=== PATIENT | female | born 1985 | race Caucasian/White ===

== ENCOUNTER 2021-10-21 01:25 | Day surgery (SDC) | payer BC, SELFPAY ==
[2021-10-07 13:34] VITALS: BMI 28.3
--- NOTE | 2021-10-20 17:34 | PM.HPGS ---
History of Present Illness History of Present Illness Consent: Risks, benefits, and alternatives have been discussed and questions answered. Patient agrees to proceed with procedure. Chief complaint: occult GI bleed Narrative: Cat Xavier is a 36 year old female who was referred for investigation of Blood in the stools. She has cycles of her bowels becoming constipated and then having loose stools for about 4 days. When her stools are softer she often feels a's though she is not empty. she had once been given a trial of Linzess but that made her miserable. She tends to not eat breakfast. Review of Systems Review of Systems: All systems reviewed & are unremarkable except as noted in HPI and below PMFSH Past Medical History Medical History Anxiety Back pain Depression HSV-1 (herpes simplex virus 1) infection Maternal blood transfusion Neck pain Surgical History Surgical History H/O knee surgery rt knee and left knee H/O shoulder surgery H/O: hysterectomy History of cholecystectomy Previous back surgery Family History Family History Other Acute myocardial infarction Breast cancer Cerebrovascular accident Crohn's disease Diabetes mellitus Hypertension Malignant lymphoma Social History Social History Smoking status: Never smoker Alcohol intake: current Substance use: current Substance use type: does not use Living arrangements: with family Gender identity (if verbalized by the patient): Female Sexual Orientation (if Verbalized by the Patient): Straight or Heterosexual Spiritual care concerns: No Meds Home Medications and Allergies Home Medications Medication Instructions Recorded Confirmed Type spironolactone 100 mg tablet 150 mg PO DAILY 10/07/21 10/07/21 History Allergies Allergy/AdvReac Type Severity Reaction Status Date / Time No Known Allergies Allergy Verified 10/21/21 10:15 Exam Resp: Auscultation: clear to auscultation bilaterally Cardio: Rate: regular rate Rhythm: regular rhythm GI: GI Palp: Yes Soft to palpation and No Tenderness to palpation present (GI) Assessment and Plan Assessment and plan (1) Melena: Code(s): K92.1 - Melena Status: Acute Assessment and Plan: Colonoscopy with possible biopsy or polypectomy or cautery or injection of substances.
[2021-10-21 10:17] VITALS: BP 116/82; PULSE 81; RESP 21; O2SAT 100
[2021-10-21] MEDS: LACTATED RINGERS 1,000 ML 30 ML IV CONT (10:24)
--- NOTE | 2021-10-21 10:27 | P.PNAN_ITS ---
Anes - Initial Pre Proc Eval Procedure: Operation Date: 10/21/21 11:30 Proposed Procedures p Colonoscopy - Napoleon Liao MD Date/Time: 10/21/21 10:27 Surgeon: Napoleon Liao MD Pre Op Diagnosis: occult GI bleed Patient Data Age: 36 Gender: F Height: 1.7 m Weight: 81.7 kg Last Vital Signs Pulse 81 10/21/21 10:17 Resp 21 H 10/21/21 10:17 BP 116/82 10/21/21 10:17 Pulse Ox 100 10/21/21 10:17 O2 Del Method Room Air 10/21/21 10:17 Allergies Allergy/AdvReac Type Severity Reaction Status Date / Time No Known Allergies Allergy Verified 10/21/21 10:15 Home Medications Medication Instructions Recorded Confirmed Type spironolactone 100 mg tablet 150 mg PO DAILY 10/07/21 10/21/21 History Patient hx anesthesia problems: none Family hx anesthesia problems: none Results Review: All pre-operative results and documents have been reviewed as part of the pre- operative evaluation. [facility] Past Medical History Medical History Anxiety Back pain Depression HSV-1 (herpes simplex virus 1) infection Maternal blood transfusion Neck pain Surgical History Surgical History H/O knee surgery rt knee and left knee H/O shoulder surgery H/O: hysterectomy History of cholecystectomy Previous back surgery Family History Family History Other Acute myocardial infarction Breast cancer Cerebrovascular accident Crohn's disease Diabetes mellitus Hypertension Malignant lymphoma Social History Social History Smoking status: Never smoker Alcohol intake: current Substance use: current Substance use type: does not use Living arrangements: with family Gender identity (if verbalized by the patient): Female Sexual Orientation (if Verbalized by the Patient): Straight or Heterosexual Spiritual care concerns: No Anes - Eval Final PreProcedure Day of Procedure 10/21/21 10:27 Patient weight: normal Heart: regular rate and rhythm Lungs: clear to auscultation Airway: Mallampati scale class II Neurological: alert and oriented Last oral intake: >/= 8 hours ASA classification: II Emergent: no Anesthetic plan: proceed Anesthesia type and monitoring: general GIVS and standard monitoring Results Review: All pre-operative results and documents have been reviewed as part of the pre- operative evaluation. Informed Consent: The patient's anesthetic plan and its attendant risks and benefits were discussed with the patient/family/POA. Questions were solicited and answers provided to the satisfaction of the patient/family/POA.
[2021-10-21 10:54] VITALS: BP 106/68; PULSE 76; RESP 25; O2SAT 100
[2021-10-21 11:04] VITALS: BP 113/70; PULSE 77; RESP 25; O2SAT 100
[2021-10-21 11:14] VITALS: BP 111/76; PULSE 69; RESP 22; O2SAT 100
== END 2021-10-21 11:24 | disposition home or self-care (01) ==
PROVIDERS: PCP Physician Assistant; Visit Provider Internal Medicine Gastroenterology
PROC: 0DJD8ZZ Inspection of Lower Intestinal Tract, Via Natural or Artificial Opening Endoscopic (ICD-10-PCS; CPT 45378; principal; 2021-10-21 11:30)
DX: K92.1 Melena (principal); K64.8 Other hemorrhoids; K51.40 Inflammatory polyps of colon without complications; F41.9 Anxiety disorder, unspecified; F32.A Depression, unspecified; Z90.49 Acquired absence of other specified parts of digestive tract
CPT/HCPCS: 45385; 88305; J2704; J7120

== ENCOUNTER 2024-01-05 16:19 | Outpatient (CLI) | payer BC, SELFPAY ==
--- NOTE | ~2024-01-05 | MM_ITS ---
EXAMINATION: MM screening lindsey BI w claudia HISTORY: Screening TECHNIQUE: Craniocaudal and mediolateral oblique 3-D tomosynthesis images were obtained and synthetic 2-D images were generated. CAD analysis was submitted and interpreted. COMPARISON: No prior mammogram is available for comparison at this institution. BREAST PARENCHYMAL COMPOSITION: Dense: The breasts are extremely dense, which lowers the sensitivity of mammography. FINDINGS: There is no evidence of suspicious mass, calcification, or architectural distortion to sugg est malignancy in either breast. There has been no suspicious interval change. IMPRESSION: 1. No mammographic evidence of malignancy. 2. Recommend routine screening mammography in one year. BI-RADS Category 1: Negative Reviewed, dictated and finalized at location B. NT LOADER
== END 2024-01-05 16:20 | disposition home or self-care (01) ==
LOC: ANHIMG 16:21
PROVIDERS: PCP Physician Assistant; Visit Provider Obstetrics & Gynecology
DX: Z12.31 Encounter for screening mammogram for malignant neoplasm of breast (principal)
CPT/HCPCS: 77063; 77067

== ENCOUNTER 2024-02-18 11:38 | Outpatient (CLI) | payer BC, SELFPAY ==
--- NOTE | ~2024-02-18 | MR_ITS ---
EXAMINATION: MR lumbar spine wo con DATE: 02/18/2024 12:18 INDICATION: Lumbar radiculopathy. Low back pain. Left leg pain. TECHNIQUE: Magnetic resonance imaging (MRI) of the lumbar spine was performed without intravenous con trast. COMPARISON: Lumbar spine radiographs 06/25/2017 FINDINGS: There is a degrees levocurvature of lumbar spine. There are changes of anterior posterior f usion procedures at L5-S1 with interbody device and pedicle screws. Vertebral body heights are normal . There is mildly decreased disc height at L4-L5. The distal spinal cord signal intensity is normal. The conus medullaris is at T12-L1. The following disc levels are specifically discussed: L1-L2: The disc does not extend beyond the endplate margin. There is mild bilateral facet joint osteo arthritis. There is no neural foraminal stenosis. There is no central canal stenosis. L2-L3: The disc does not extend beyond the endplate margin. There is moderate right and mild left fac et joint osteoarthritis. There is no neural foraminal stenosis. There is no central canal stenosis. L3-L4: The disc is bulging and has an annular fissure. There is moderate bilateral facet joint osteoa rthritis. There is mild bilateral neural foraminal stenosis. There is mild central canal stenosis. L4-L5: There is a left central extrusion. There is mild bilateral facet joint osteoarthritis. There i s mild left neural foraminal stenosis. There is mild central canal stenosis. L5-S1: There is no facet joint hypertrophy. There is no neural foraminal stenosis. There is no centra l canal stenosis. There is posterior decompression. IMPRESSION: 1. Mild lumbar spondylosis. 2. Anterior and posterior fusion procedures at L5-S1. Reviewed, dictated and finalized at location A. CAPTAIN
== END 2024-02-18 11:39 | disposition home or self-care (01) ==
LOC: MICIMG 11:39
PROVIDERS: PCP Physician Assistant; Visit Provider Physician Assistant
DX: M43.06 Spondylolysis, lumbar region (principal); Z98.1 Arthrodesis status
CPT/HCPCS: 72148

== ENCOUNTER 2024-11-14 14:45 | Emergency (ER) | payer OTHER, BC, SELFPAY ==
--- NOTE | ~2024-11-14 | CT_ITS ---
EXAMINATION: CT brain wo con COMPARISON: None HISTORY: headache for over 1 week TECHNIQUE: Axial images were obtained through the brain without IV contrast. CT scan performed using dose optimization techniques including the following automated exposure control; adjustment of mA and/or kV; use of iterative reconstruction technique. Automatic exposure control was used to reduce radiation dose. Permanent radiation dose record is archived to PACS. FINDINGS: No acute infarct or parenchymal hemorrhage. No abnormal mass or mass effect. No midline shift. No extra-axial fluid collections. No hydrocephalus. . Mastoid air cells unremarkable. Sinuses and orbits unremarkable. No acute fracture. No significant facial or scalp soft tissue swelling evident. No radiopaque foreign body is seen. Impression: 1.No acute intracranial abnormality. Reviewed, dictated and finalized at location A. Impression: 1.No acute intracranial abnormality.
[2024-11-14 14:53] VITALS: BP 124/79; PULSE 67; RESP 14; TEMP 36.1; O2SAT 98
--- NOTE | 2024-11-14 14:56 | ED.HA ---
HPI - Headache General Chief Complaint: Headache Stated Complaint: headache x 1 wk Time Seen by Provider: 11/14/24 14:52 Source: patient Mode of arrival: ambulatory Limitations: no limitations History of Present Illness HPI Narrative: Rossy is a 39-year-old female patient presenting to the ER today with complaints of headache for over 1 week. Reports pain is behind the eyes/ forehead and is wrapping around her head. Does report some associated nausea without vomiting. Patient has been taking Fioricet for her symptoms and she is not having improvement of pain. Does have some ringing in the left ear. Rates pain 8/10 currently. No visual changes. She seen her PCP on Tuesday and was given a Toradol injection and states that did not help. Pain is constantly dull and comes in waves as a sharp pain. Rates pain currently an 8/10. Related Data Home Medications ?Medication ?Instructions ?Recorded ?Confirmed ?Last Taken ?Type spironolactone 100 mg tablet 150 mg PO DAILY 10/07/21 09/04/24 10/20/21 History lisdexamfetamine 40 mg capsule 40 mg PO DAILY 08/24/22 09/04/24 Unknown History (Vyvanse) Allergies Allergy/AdvReac Type Severity Reaction Status Date / Time No Known Allergies Allergy Verified 11/14/24 14:52 Review of Systems Review of Systems: Pertinent positives per HPI. Patient denies any fever, chills, rash, visual changes, dizziness, cough, runny nose, sore throat, shortness of breath, chest pain, palpitations, nausea, vomiting, diarrhea, constipation, abdominal pain, or any urinary issues. [facility] Past Medical History Medical History Screening mammogram, encounter for HSV-1 (herpes simplex virus 1) infection Depression Maternal blood transfusion Neck pain Back pain Anxiety Surgical History Surgical History H/O shoulder surgery Previous back surgery History of cholecystectomy H/O knee surgery rt knee and left knee 02/2023 left knee H/O: hysterectomy Family History Family History Other Acute myocardial infarction Breast cancer Cerebrovascular accident Crohn's disease Diabetes mellitus Hypertension Malignant lymphoma Social History Social History Smoking status: Never smoker Alcohol intake: current Substance use: current Other substance usage details: edible Do You Feel Safe in your Home?: Yes Lack of Transportation: No Lack of Food: Never True Current Housing: I Have Housing Concerned About Future Housing: No Difficulty Paying Gas/Electric Bills: No Difficulty Paying for Meds: No Currently Unemployed: No Education: Bachelor's Degree Difficulty w/ Childcare or Family Care: No Living arrangements: with family Additional living arrangements comments: Occupation/Education: occupation Gender identity (if verbalized by the patient): Female Sexual Orientation (if Verbalized by the Patient): Straight or Heterosexual Spiritual care concerns: No Comments At the time of my signature, I reviewed and agree with the nursing past medical, surgical, social, and family history. There is no relevant family history pertinent to the patient complaint. Exam Narrative: General: Well-developed, well nourished, in no apparent distress Head: Normocephalic, atraumatic Eyes: Pupils equally round and reactive to light bilaterally, EOM intact, sclera and conjunctive clear, no discharge, lids normal Ears: TMs intact and clear, ear canals clear, no drainage, grossly hearing normal. Nose: Nares patent, no discharge, no inflammation, no sinus tenderness. Mouth: Oropharynx without lesions or masses, good dentition, MMM. Tongue midline, even rise and fall of uvula Neck: Supple, trachea midline, no enlargement of anterior or posterior cervical nodes, no thyroid masses or goiter palpable. Cardio: Regular rate and rhythm, s1 and s2 normal, no murmur appreciated. Resp: Clear to auscultation bilaterally anteriorly and posteriorly, no rhonchi, rales, wheezing or rubs Musculoskeletal: No deformity, non-tender to palpation, grossly normal range of motion, muscle strength strong and equal, peripheral pulse strong, no edema, no cyanosis, normal gait and station Neuro: Alert and oriented x4 with normal speech, no focal deficits, cranial nerves I through XII intact, muscle strength 5 out of 5, sensation intact bilaterally Course Course Emergency Course: Portions of this record may have been created with voice recognition software. Vital Signs Vital signs: Vital Signs Temperature 36.1 C L 11/14/24 14:53 Pulse Rate 67 11/14/24 14:53 Respiratory Rate 14 11/14/24 14:53 Blood Pressure 124/79 11/14/24 14:53 Pulse Oximetry 98 11/14/24 14:53 Oxygen Delivery Room Air 11/14/24 14:53 Temperature 36.1 C L 11/14/24 14:53 Pulse Rate 88 11/14/24 18:34 Respiratory Rate 17 11/14/24 18:34 Blood Pressure 133/81 11/14/24 18:34 Pulse Oximetry 99 11/14/24 18:34 Oxygen Delivery Room Air 11/14/24 14:53 Vital signs reviewed MDM - Headache MDM Narrative Medical decision making narrative: At the time of visit patient is resting comfortably on the exam table. Patient appears to be nontoxic. Complaints of headache for over 1 week. Reports pain is behind the eyes/ forehead and is wrapping around her head. Does report some associated nausea without vomiting. Patient has been taking Fioricet for her symptoms and she is not having improvement of pain. Does have some ringing in the left ear. Rates pain 8/10 currently. No visual changes. She seen her PCP on Tuesday and was given a Toradol injection and states that did not help. Pain is constantly dull and comes in waves as a sharp pain. Rates pain currently an 8/10. CT head, Benadryl 25 mg IV, promethazine 12.5 mg IV, IV bolus of normal saline, and 15 mg IV Toradol ordered. After medication was given patient reports that her symptoms are not improving. Patient feels anxious, restless, and like her skin is crawling. Xanax 0.5 mg ordered. Diagnostics: CT brain without contrast is negative for any acute intracranial process. Plan: Patient's symptoms improved somewhat after Xanax. I suspect patient has headache/anxiety. Follow-up with PCP in 3-5 days if symptoms persist. Supportive measures were discussed with the patient and they voiced understanding discharge instructions and agrees to treatment plan. Return precautions reviewed Differential Diagnosis Differential diagnosis: Likely migraine, tension headache, subarachnoid hemorrhage, headache, meningitis, sinusitis, postconcussion syndrome and other (Anxiety) Imaging Data Radiologist's impression: ITS Impressions Head CT 11/14/24 17:16 Impression: 1.No acute intracranial abnormality. Discharge Plan Discharge Clinical Impression: Anxiety Headache Qualifiers: Headache type: unspecified Headache chronicity pattern: acute headache Intractability: not intractable Qualified Code(s): R51.9 - Headache, unspecified Patient Disposition: Home Condition: Stable Instructions: Antibiotic Form, Acute Headache (ED), Anxiety (ED) Additional Instructions: CT head negative for any acute intracranial process Go home and rest in a cool dark place Increase fluids and stay well hydrated May continue Fioricet as prescribed Follow-up with your primary care doctor in 2-3 days if symptoms persist-may need referral to Neurology. Patient Language: [place] Prescriptions: No Action Vyvanse 40 mg capsule 40 mg PO DAILY mirabegron [Myrbetriq] 25 mg tablet extended release 24 hr 25 mg PO DAILY Qty: 90 3RF nystatin-triamcinolone 100,000-0.1 unit/gram-% ointment 1 applic topical BID Qty: 60 2RF spironolactone 100 mg tablet 150 mg PO DAILY valacyclovir [Valtrex] 1 gram tablet 1,000 mg PO Q12H 10 Days Qty: 20 2RF Follow-up/Referrals: Amy,LIV Massey [Primary Care Provider, Unknown] Time of Disposition: 18:25 Quality NIHSS Nursing Documentation ED NIHSS nursing documentation: reviewed/agree
--- OUTSIDE RECORDS SUMMARY | 2024-11-14 15:25 | XMS_ITS | Patient Health Record ---
Author Organization [facility] Address [address] [place] [address] Care Team Providers Care Mill Order Scheduler Name Role Phone Rossana Doherty Unavailable [phone] Allergies No Known Allergies Reason For Referral No Information Medications Medication SIG (Take, Route, Fr equency, Duration) Notes Start Date End Date Status Fioricet 50-300-40 MG prn Oral Active Plan Of Treatment No Information Insurance Providers Payer Name Payer Address Payer Phone Subscriber Number Group Number Insured Name Patient Relationship to Insured Coverage Start Date Coverage End Date [employer] [address] [address] [place] [address] [id number] Cat Xavier Self - patient is the insured [place] [address] [place] [address] [id number] Cat Xavier Self - patient is the insured 2 Medical (General) History Surgical History Surgery Date(Month/Year) Knee surgery; 2018-11-16 cholecystectomy; 2018-11-16
--- OUTSIDE RECORDS SUMMARY | 2024-11-14 15:25 | XMS_ITS | Clinical Summary ---
Author Organization [facility] Address [address] [place] [address] Phone Care Team Providers Care Lacquer Shader Name Role Phone Jose Castaneda MD Primary Care Provider [phone] Allergies No known active allergies Medications PNV COMBO#14/FE/FA #1/DHA/LYNETTE (PNV #[id number]#1-DH A-DOCUSATE ORAL) Act holli valacyclovir (VALTREX) 500 mg Oral tablet Take 500 mg by mouth 2 times daily. Active Active Problems Problem Noted Date Diagnosed Date 09/0609/06/2014 07/18, girl 07/19/2011 Resolved Problems Problem Noted Date Diagnosed Date Resolved Date SROM (0010) GBS-, A+, HSV (-ble) 07/19/2011 07/19/2011 Immunizations Immunization Administration Dates Next Due (ADACEL/BOOSTRIX)(10 YR UP) TDAP VACCINE, 0.5ML, IM 07/20/2011 Influenza Seasonal Unspecified Formulation IM Family History Medical History Relation Name Comments Healthy Brother Healthy Father Healthy Maternal Grandmother Other Maternal Grandmother Chron's Disease Healthy Mother Relation Name Status Comments Brother Alive Father Alive Maternal Grandfather Maternal Grandmother Alive Mother Alive Paternal Grandfather Paternal Grandmother Social History Tobacco Use Types Packs/Day Years Used Date Smoking Tobacco: Never Smokeless Tobacco: Never Alcohol Use Standard Drinks/Week Comments No 0 (1 standard drink = 0.6 oz pur e alcohol) Comments No Sex and Gender Information Value Date Recorded Sex Assigned at Not on file Legal Sex Female 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 Gender Identity Not on file Sexual Orientation Not on file Occupation Industry Job Start Date Job End Date Not on file Not on file Not on file Not on file Last Filed Vital Signs Vital Sign Reading Time Taken Comments Blood Pressure 102/72 09/08/2014 8:00 AM CDT Pulse 62 09/08/2014 8:00 AM CDT Temperature 36.6 C (97.9 F) 09/08/2014 8:00 AM CDT Respiratory Rate 18 09/08/2014 8:00 AM CDT Oxygen Saturation 100% 09/07/2014 12:27 PM CDT Inhaled Oxygen Concentration - - Weight 93 kg (205 lb) 09/06/2014 2:21 PM CDT Height 170.2 cm (5' 7) 09/06/2014 2:21 PM CDT Body Mass Index 32.11 09/06/2014 2:21 PM CDT Plan of Treatment Health Maintenance Due Date Last Done Comments HEPATITIS B VACCINES (1 of 3 - 19+ 3-dose series) 04/01 HPV/Cotest (21-29) 2004 HPV VACCINES (1 - 3-dose SCDM series) 2010 CERVICAL CANCER SCREENING 2013 HPV/Cotest (30-65) 2013 PAP SMEAR 2013 DTAP/TDAP/TD VACCINES (2 - Td or Tdap) 07/19/2021 BREAST CANCER SCREENING 2023 INFLUENZA VACCINE (#1) 2024 01/28/[address] OPTIONS PPO [id number] [facility] [employer] Advance Directives For more information, please contact: [phone] * Full Code (Latest Code Status on File) Date Activated Date Inactivated Comments 09/06/2014 2:55 PM 09/08/2014 2:22 PM * Full Code Date Activated Date Inactivated Comments 07/19/2011 12:44 PM 07/21/2011 2:48 PM * Full Code Date Activated Date Inactivated Comments 07/19/2011 1:21 AM 07/19/2011 12:44 PM Care Teams Lacquer Shader Relationship Specialty Start Date End Date Jose Castaneda MD [facility] [place] [address] PCP - General Family Practice 01/12/11
--- OUTSIDE RECORDS SUMMARY | 2024-11-14 15:25 | XMS_ITS | Clinical Summary ---
Author Organization [facility] Address [address] [place] [address] Care Team Providers Care Telescope Maintenance Name Role Phone Shilpa Durand Primary Care Pr ovider Source Comments [facility],non-owned Affiliates and Associated Physician Practices is amultiple site organization consisting of ambulatory clinics and hospital sitesin [place], [place], [place]. This disclosure is being madepursuant to the Care Everywhere program and may not contain all information available regarding this patient. Last updated 17.[facility] Allergies Active Allergy Reactions Criticality Noted Date Comments Adhesive Sensitivity Skin Reactions,Rash,Unknow n Medium 05/17/2019 Skin get very reddened Chloraprep One Step Rash High 04/17/2020 Chlorhexidine Rash Medium 09/04/2020 Medications * Be aware that medications may not be up to date on this document. Alwaysverify current medications with the patient. butalbital-acet aminophen-caffe ine (FIORICET) 50-300-40 MG capsule TK 1 C PO Q 6-8 H PRN 0 Active clindamycin-cordell zoyl peroxide (DUAC) 1.2-5 % gel Apply to affected area once daily 0 Active multivitamin daily tablet Take 1 tablet by mouth daily with food Active lactobacillus extra strength (FLORAJEN) capsule Take 1 capsule by mouth once daily Active fluconazole (Diflucan) 150 MG tablet Diflucan 150 mg tablet Take 1 tablet every 72 hours by oral route. Active sulfamethoxazol e-trimethoprim (BACTRIM DS; SEPTRA DS) 800-160 MG tablet 1 Active spironolactone (ALDACTONE) 100 MG tablet 1 Active valACYclovir (Valtrex) 1 GM tablet valacyclovir 1 gram tablet TAKE 1 TABLET BY MOUTH DAILY FOR 5 DAYS Active cyclobenzaprine (Flexeril) 10 MG tablet Take 1 (one) tablet by mouth 3 times daily as needed for Muscle Spasms 60 tablet 1 2 Active clindamycin (Cleocin) 1 % lotion Apply to affected area 2 times daily Active Active Problems Problem Noted Date Diagnosed Date S/P lumbar fusion 06/05/2020 Spondylosis of lumbosacral region 05/22/2020 Anxiety 12/24/2019 Plantar fasciitis of left foot 07/11/2019 Labor and delivery indication for care or interv ention 09/06/2014 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 (AF LURIA, FLUZONE TRIVALENT; 6MO+) (IIV3) 01/28/2011 INFLUENZA VACCINE 02/28/2015 INFLUENZA VACCINE, QUADR. (F LUZONE; FLULAVAL; FLUARIX; AFLURIA QUADRIVALENT; 6MO+), 0.5 ML (IIV4) 12/25/2019,12/13/2018 TDAP (7yrs+) 07/20/2011 Family History Medical History Relation Name Comments Psoriasis Daughter Crohn's Disease Maternal Grandmother Relation Name Status Comments Daughter Maternal Grandmother Social History Tobacco Use Types Packs/Day Years Used Date Smoking Tobacco: Never Smokeless Tobacco: Never Tobacco Cessation:Counseling Given: Not Answered Alcohol Use Standard Drinks/Week Comments Yes 1 (1 standard drink = 0.6 oz pur e alcohol) occaisional PHQ-2 Answer Date Recorded PHQ2 TOTAL SCORE 0 11/19/2020 Comments No Sex and Gender Information Value Date Recorded Sex Assigned at Female 05/04/2021 9:32 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 Legal Sex Female 1:40 AM PRODUCT SAFETY LEAD Gender Identity Female 05/04/2021 9:32 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 Sexual Orientation Not on file Last Filed Vital Signs Vital Sign Reading Time Taken Comments Blood Pressure 117/84 05/10/2024 8:49 AM CDT Pulse 59 05/10/2024 8:49 AM CDT Temperature 36.2 C (97.2 F) 05/10/2024 8:49 AM CDT Respiratory Rate 12 05/25/2020 7:15 AM CDT Oxygen Saturation 99% 05/10/2024 8:49 AM CDT Inhaled Oxygen Concentration - - Weight 73.5 kg (162 lb) 05/10/2024 8:49 AM CDT Height 170.2 cm (5' 7) 12/31/2021 9:50 AM CDT Body Mass Index 25.37 12/31/2021 9:50 AM CDT Plan of Treatment Health Maintenance Due Date Last Done Comments LIPID TESTING 1983 MAMMOGRAM 1983 HIV SCREENING 1998 HEPATITIS C SCREENING 04/22/2001 HEPATITIS B VACCINE (1 of 3 - 19+ 3-dose series) 2002 HPV VACCINE (1 - 3-dose SCDM series) 2010 DTAP/TDAP/TD VACCINES (2 - Td or Tdap) 07/19/2021 07/20/2011 DEPRESSION SCREENING 02/29/2024 COVID-19 VACCINE ( - 2024- season) 2024 01/09/2021, 05/18/2020, 2020 INFLUENZA VACCINE (#1) 2024 , 12/26/2020, 12/25/2019, Additional history exists ZOSTER VACCINE (1 of 2) 2033 HIB VACCINE Aged Out No longer eligi ble based on patient's age to complete this topic MENINGOCOCCAL (Group B) VACCINE SHARED DECISION-MAKING Aged Out No longer eligible based on patient's age to complete this topic MENINGOCOCCAL GROUPS A/C/Y/W VACCINE Aged Out No longer eligible based on patient's age to complete this topic PNEUMOCOCCAL VACCINE Aged Out No long er eligible based on patient's age to complete this topic Medical Devices Implanted Type Area Registered Client Associate Device Identifier Shelf Expiration Date Model / Serial / Lot Screw 7.5mm 35mm Ma Spne Solera Cd Hzn Implanted:Qty: 2 on 05/22/2020 by Noreen Canchola MD at [facility] N/A: Spine Lumbar Medtronic [employer] [id number] / / Screw Set Ti Spnl Brk Off Cd Hzn Nonster Implanted:Qty: 4 on 05/22/2020 by Noreen Canchola MD at [facility] N/A: Spine Lumbar Medtronic [employer] [id number] / / Screw 7.5mm 45mm Ma Spne Solera Cd Hzn Implanted:Qty: 2 on 05/22/2020 by Noreen Canchola MD at [facility] N/A: Spine Lumbar Medtronic [employer] [id number] / / Graft Bone Grftn Dbm Aspt 5x2.5cm Post - [id number] Implanted:Qty: 1 on 05/22/2020 by Noreen Canchola MD at [facility] N/A: Spine Lumbar Medtronic Sofamor [employer] Spine 03/12/2023 [id number] / [id number] / Spcr Spnl [id number] Elev Xlordotic Peek Implanted:Qty: 1 on 05/22/2020 by Noreen Canchola MD at [facility] N/A: Spine Lumbar Medtronic Sofamor [employer] Spine 05/02/2027 [id number] / / [id number] Spcr Spnl [id number] Elev Xlordotic Peek Implanted:Qty: 1 on 05/22/2020 by Noreen Canchola MD at [facility] N/A: Spine Lumbar Medtronic Sofamor [employer] Spine 03/05/2028 [id number] / / [id number] Dawood Spnl 50mm 5.5mm Cd Hzn Crv Cocrmo Implanted:Qty: 2 on 05/22/2020 by Noreen Canchola MD at [facility] N/A: Spine Lumbar Medtr[employer] Inc [id number] / / Insurance ANTHEM ANTHEM Advance Directives * Full Code (Latest Code Status on File) Date Activated Date Inactivated Comments 05/22/2020 7:33 PM 05/25/2020 1:59 PM Care Teams Telescope Maintenance Relationship Specialty Start Date End Date Shilpa Durand PA [address] [place] [id number] PCP - General Physician Vault Service Mechanic 04/23/18
[2024-11-14] MEDS: SODIUM CHLORIDE 0.9% IV 1,000 ML 999 ML IV CONT (15:54)
[2024-11-14] MEDS: PROMETHAZINE HCL 25 MG/ML AMPUL 12.5 MG IV PUSH (15:54)
--- OUTSIDE RECORDS SUMMARY | 2024-11-14 15:54 | XMS_ITS | Clinical Summary ---
Author Organization [facility] Address [address] [place] [address] Phone Care Team Providers Care Medicine And Health Service Manager Name Role Phone Jose Castaneda MD Primary Care Provider [phone] Allergies No known active allergies Medications PNV [...] on file Legal Sex Female 6:05 AM TOOL POLISHER Gender Identity Not on file Sexual Orientation [...] 2023 INFLUENZA VACCINE (#1) 2024 01/28/[address] OPTIONS PPO [id number] [facility] FEDERAL Advance Directives For more information, please contact: [phone] * Full Code (Latest Code Status on File) Date Activated Date Inactivated Comments 09/06/2014 2:55 PM 09/08/2014 2:22 PM * Full Code Date Activated Date Inactivated Comments 07/19/2011 12:44 PM 07/21/2011 2:48 PM * Full Code Date Activated Date Inactivated Comments 07/19/2011 1:21 AM 07/19/2011 12:44 PM Care Teams Medicine And Health Service Manager Relationship Specialty Start Date End Date Jose Castaneda MD [facility] [place] [address] PCP - General Family Practice 01/12/11
--- OUTSIDE RECORDS SUMMARY | 2024-11-14 15:54 | XMS_ITS | Clinical Summary ---
Author Organization [facility] Address [address] [facility] [address] [place] [address] Care Team Providers Care Broadcast News Producer Name Role Phone Shilpa Durand Primary Care Pr ovider Source Comments [facility],non-owned Affiliates and Associated Physician Practices is amultiple site organization consisting of ambulatory clinics and hospital sitesin [place], [place], [place] and [place]. This disclosure is being madepursuant to the Care Everywhere program and may not contain all information available regarding this patient. 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 Legal Sex Female 1:40 AM JUNIOR SOFTWARE ENGINEER Gender Identity Female 05/04/2021 9:32 PM JUNIOR SOFTWARE ENGINEER Sexual Orientation Not on file Last Filed [...] this topic Medical Devices Implanted Type Area Shoes Salesperson Device Identifier Shelf Expiration Date Model / Serial / Lot Screw 7.5mm 35mm Ma Spne Solera Cd Hzn Implanted:Qty: 2 on 05/22/2020 by Noreen Canchola MD at [facility] N/A: Spine Lumbar Medtronic [employer] [id number] / / Screw Set Ti Spnl Brk Off Cd Hzn Nonster Implanted:Qty: 4 on 05/22/2020 by Noreen Canchola MD at [facility] N/A: Spine Lumbar Medtronic [employer] [id number] / / Screw 7.5mm 45mm Ma Spne Solera Cd Hzn Implanted:Qty: 2 on 05/22/2020 by Noreen Canchola MD at [facility] N/A: Spine Lumbar Medtronic [employer] [id number] / / Graft Bone Grftn Dbm Aspt 5x2.5cm Post - [id number] Implanted:Qty: 1 on 05/22/2020 by Noreen Canchola MD at [facility] N/A: Spine Lumbar Medtronic Sofamor [employer] Spine 03/12/2023 [id number] / [id number] / Spcr Spnl [id number] Elev Xlordotic Peek Implanted:Qty: 1 on 05/22/2020 by Noreen Canchola MD at [facility] N/A: Spine Lumbar Medtronic Sofamor [employer] Spine 05/02/2027 [id number] / / [id number] Spcr Spnl [id number] Elev Xlordotic Peek Implanted:Qty: 1 on 05/22/2020 by Noreen Canchola MD at [facility] N/A: Spine Lumbar Medtronic Sofamor [employer] Spine 03/05/2028 [id number] / / [id number] Dawood Spnl 50mm 5.5mm Cd Hzn Crv Cocrmo Implanted:Qty: 2 on 05/22/2020 by Noreen Canchola MD at [facility] N/A: Spine Lumbar Medtronic Inc [id number] / / Insurance ANTHEM ANTHEM Advance Directives * Full Code (Latest Code Status on File) Date Activated Date Inactivated Comments 05/22/2020 7:33 PM 05/25/2020 1:59 PM Care Teams Broadcast News Producer Relationship Specialty Start Date End Date Shilpa Durand PA [address] [place] [id number] PCP - General Physician Boat Worker 04/23/18
[2024-11-14] MEDS: KETOROLAC 15 MG/ML VIAL (*BKC) IV PUSH (15:55)
[2024-11-14] MEDS: ALPRAZolam (*CRX) 0.5 MG TABLET PO (17:34)
[2024-11-14 18:34] VITALS: BP 133/81; PULSE 88; RESP 17; O2SAT 99
== END 2024-11-14 18:36 | disposition home or self-care (01) ==
PROVIDERS: Emergency Provider Nurse Practitioner Family; PCP Physician Assistant
DX: F41.9 Anxiety disorder, unspecified (principal); R51.9 Headache, unspecified
CPT/HCPCS: 70450; 96361; 96374; 96375; 99284; A9270; J1200; J1885; J2550; J7030

== ENCOUNTER 2025-02-02 12:37 | Emergency (ER) | payer OTHER, BC, SELFPAY ==
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
[2025-02-02 12:49] VITALS: BP 104/72; PULSE 86; RESP 18; TEMP 36.3; O2SAT 100
== END 2025-02-02 13:13 | disposition home or self-care (01) ==
PROVIDERS: Emergency Provider Nurse Practitioner Family; PCP Physician Assistant
DX: S16.1XXA Strain of muscle, fascia and tendon at neck level, initial encounter (principal); V43.62XA Car passenger injured in collision with other type car in traffic accident, initial encounter
CPT/HCPCS: 99213; G0463